=== PATIENT | female | born 1965 | race Caucasian/White ===

== ENCOUNTER 2022-01-12 20:05 | Emergency (ER) | payer OTHER ==
[~2022-01-12] VITALS: Ht 157.5 cm; Wt 117.9 kg
[2022-01-12] MEDS ORDERED: LOSARTAN POTASS50 MG PO (20:24)
[2022-01-12] MEDS ORDERED: LEVOTHYROXINE25 MCG PO (20:24)
[2022-01-12] MEDS ORDERED: MONTELUKAST SOD10 MG PO (20:24)
[2022-01-12] MEDS ORDERED: VALSARTAN80 MG PO (20:24)
[2022-01-12] MEDS ORDERED: ASPIRIN325 MG PO (20:25)
[2022-01-12] MEDS ORDERED: PROAIR RESPICL90 MCG INH (20:25)
[2022-01-12] MEDS ORDERED: OMEPRAZOLE20 MG PO (20:25)
[2022-01-12] MEDS ORDERED: CARAFATE1 GM PO (21:45)
[2022-01-12] MEDS ORDERED: HYDROCODON-ACE1 EA10 PO (21:45)
[2022-01-12] MEDS ORDERED: ONDANSETRON ODT8 MG PO (21:45)
--- OUTSIDE RECORDS SUMMARY | 2022-01-12 22:17 | XMS ---
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 She has no Care Guidelines for this patient. Radha VISIT COUNT (12 MO.) 1 [facility] TOTAL 1 NOTE: Visits indicate total known visits. ED/UCC VISIT TRACKING (12 MO.) 01/12/2022 20:06 [facility] [place] TYPE: Emergency COMPLAINT: - VOMITING INPATIENT VISIT TRACKING (12 MO.) No inpatient visits to display in this time frame [id number]
== END 2022-01-13 00:50 | disposition home or self-care (01) ==
LOC: ED 20:05
DX: K29.70 Gastritis, unspecified, without bleeding (principal); I10 Essential (primary) hypertension; J45.909 Unspecified asthma, uncomplicated; E78.5 Hyperlipidemia, unspecified; E03.9 Hypothyroidism, unspecified; K21.9 Gastro-esophageal reflux disease without esophagitis; Z88.1 Allergy status to other antibiotic agents; Z79.899 Other long term (current) drug therapy; Z79.82 Long term (current) use of aspirin; Z79.51 Long term (current) use of inhaled steroids; Z20.822 Contact with and (suspected) exposure to COVID-19
CPT/HCPCS: 36415; 74177; 80053; 81001; 83690; 85025; 96375; 99284-25; C9803; J1790; J2270; J2405; J2550; J7030; Q9967; U0003

== ENCOUNTER 2023-01-13 18:59 | Emergency (ER) | payer OTHER ==
[~2023-01-13] VITALS: Ht 157.5 cm; Wt 117.9 kg
[~2023-01-13 18:59] MED LIST: ASPIRIN325 MG PO; CARAFATE1 GM PO; HYDROCODON-ACE1 EA10 PO; LEVOTHYROXINE25 MCG PO; LOSARTAN POTASS50 MG PO; MONTELUKAST SOD10 MG PO; OMEPRAZOLE20 MG PO; ONDANSETRON ODT8 MG PO; PROAIR RESPICL90 MCG INH; VALSARTAN80 MG PO
[2023-01-13] MEDS ORDERED: CLOBETASOL PROP15 GM (19:22)
[2023-01-13] MEDS ORDERED: POTASSIUM CHLO10 ME1 PO (19:22)
[2023-01-13] MEDS ORDERED: LOMOTIL TABLET1 EACH PO (22:04)
[2023-01-13] MEDS ORDERED: ONDANSETRON ODT4 MG SL (22:04)
== END 2023-01-13 22:22 | disposition home or self-care (01) ==
LOC: ED 18:59
DX: A08.4 Viral intestinal infection, unspecified (principal); I10 Essential (primary) hypertension; J45.909 Unspecified asthma, uncomplicated; E78.5 Hyperlipidemia, unspecified; E03.9 Hypothyroidism, unspecified; K21.9 Gastro-esophageal reflux disease without esophagitis; Z88.1 Allergy status to other antibiotic agents; Z79.899 Other long term (current) drug therapy; Z20.822 Contact with and (suspected) exposure to COVID-19
CPT/HCPCS: 36415; 80053; 81001; 83735; 85025; 87502; 96361; 96374; 99284-25; A9270; J2405; J7121; U0003

== ENCOUNTER 2023-01-14 22:38 | Emergency (ER) | payer OTHER ==
[~2023-01-14] VITALS: Ht 157.5 cm; Wt 117.9 kg
[~2023-01-14 22:38] MED LIST changes: +CLOBETASOL PROP15 GM; +LOMOTIL TABLET1 EACH PO; +ONDANSETRON ODT4 MG SL; +POTASSIUM CHLO10 ME1 PO
--- OUTSIDE RECORDS SUMMARY | 2023-01-14 22:46 | XMS ---
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 [facility] VISIT COUNT (12 MO.) 2 [facility] TOTAL 2 NOTE: Visits indicate total known visits. 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
== END 2023-01-15 00:17 | disposition home or self-care (01) ==
LOC: ED 22:38
DX: A08.4 Viral intestinal infection, unspecified (principal); I10 Essential (primary) hypertension; J45.909 Unspecified asthma, uncomplicated; E78.5 Hyperlipidemia, unspecified; E03.9 Hypothyroidism, unspecified; K21.9 Gastro-esophageal reflux disease without esophagitis; Z88.1 Allergy status to other antibiotic agents; Z91.040 Latex allergy status; Z79.899 Other long term (current) drug therapy
CPT/HCPCS: 36415; 74177; 80053; 85025; 96361; 96375; 99284-25; A9270; J1790; J3010; J7121; Q9967

== ENCOUNTER 2024-06-08 18:49 | Emergency (ER) | payer OTHER ==
[~2024-06-08] VITALS: Ht 157.5 cm; Wt 113.2 kg
[~2024-06-08 18:49] MED LIST changes: +BENZONATATE100 MG PO; +FUROSEMIDE20 MG PO; +HYDROCHLOROTHIA25 MG PO; +OTEZLA30 MG PO; +RINVOQ ER15 MG PO
--- OUTSIDE RECORDS SUMMARY | 2024-06-08 18:56 | XMS ---
PreManage Notification: ABIOLA MALAGON Security Kitchen Operator Events No recent Security Events currently on file CRITERIA MET - [facility] - 2 Visits in 30 Days CARE PROVIDERS There are no care providers on record at this time. She has no Care Guidelines for this patient. [facility]: Visits indicate total known visits. ED/C VISIT TRACKING (12 MO.) 06/08/2024 18: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
[2024-06-08 20:42] LABS: BASOPHILS 0.4 % (0-2); EOSINOPHILS 0.5 % (0-6); HEMATOCRIT 37.6 % (35.0-50.0); HEMOGLOBIN 12.9 g/dL (12.0-18.0); LYMPHOCYTES 31.7 % (24-44); MCHC 34.3 g/dl (30-36); MCV 78.8 fl (81-99); MONOCYTES 8.8 % (0-12); NEUTROPHILS 58.6 % (39-80); PLATELET COUNT 386 K/uL (140-440); RBC 4.77 M/ul (4.3-5.7); RDW 15.5 (10.5-15.0)
[2024-06-08 20:57] LABS: ALBUMIN 3.6 g/dL (3.4-5.0); ALBUMIN/GLOBULIN RATIO 0.9 (1.1-2.4); ANION GAP 14.1 (7-21); BILIRUBIN, TOTAL 0.8 ng/dL (0.2-1.0); BUN/CREATININE RATIO 12.38 (6.0-28.6); CREATININE, SERUM 1.13 mg/dL (0.55-1.02); POTASSIUM 3.1 mmol/L (3.5-5.1); PROTEIN, TOTAL 7.6 g/dL (6.4-8.2)
[2024-06-08] MEDS ORDERED: DOXYCYCLINE HYCLATE 100 MG HOME.PACK PO ONE (21:15)
[2024-06-08 21:33] VITALS: BP 136/78
== END 2024-06-08 21:37 | disposition home or self-care (01) ==
LOC: ED 18:49
PROVIDERS: Emergency Medicine
DX: J01.90 Acute sinusitis, unspecified (principal); J40 Bronchitis, not specified as acute or chronic; E87.6 Hypokalemia; I10 Essential (primary) hypertension; J45.909 Unspecified asthma, uncomplicated; E78.5 Hyperlipidemia, unspecified; E03.9 Hypothyroidism, unspecified; K21.9 Gastro-esophageal reflux disease without esophagitis; Z79.899 Other long term (current) drug therapy; Z79.890 Hormone replacement therapy; Z88.1 Allergy status to other antibiotic agents; Z91.040 Latex allergy status
CPT/HCPCS: 36415; 71045; 71046; 80053; 83735; 85025; A9270